=== PATIENT | male | born 2000 | race Two or more races ===

== ENCOUNTER 2020-01-20 13:16 | Emergency (ER) | payer OTHER ==
[~2020-01-20] VITALS: Ht 185.4 cm; Wt 57.6 kg
[2020-01-20] MEDS ORDERED: ABILIFY2 MG (13:43)
[2020-01-20] MEDS ORDERED: LEXAPRO5 MG (13:43)
[2020-01-20] MEDS ORDERED: CLONAZEPAM0.5 MG (13:44)
== END 2020-01-20 15:25 | disposition home or self-care (01) ==
LOC: ER 13:16
DX: R42 Dizziness and giddiness (principal); F06.4 Anxiety disorder due to known physiological condition; T43.595A Adverse effect of other antipsychotics and neuroleptics, initial encounter; Y92.89 Other specified places as the place of occurrence of the external cause

== ENCOUNTER 2022-08-12 10:10 | Emergency (ER) | payer OTHER ==
[~2022-08-12] VITALS: Ht 185.4 cm; Wt 59.0 kg
[~2022-08-12 10:10] MED LIST: ABILIFY2 MG; CLONAZEPAM0.5 MG; LEXAPRO5 MG
[2022-08-12] MEDS ORDERED: AMOX1TAB5 PO (13:54)
== END 2022-08-12 14:18 | disposition home or self-care (01) ==
LOC: ER 10:10
DX: B34.9 Viral infection, unspecified (principal); Z20.822 Contact with and (suspected) exposure to COVID-19

== ENCOUNTER 2023-03-27 09:12 | Emergency (ER) | payer OTHER ==
[~2023-03-27] VITALS: Ht 185.4 cm; Wt 56.7 kg
[~2023-03-27 09:12] MED LIST changes: +AMOX1TAB5 PO
== END 2023-03-27 16:28 | disposition home or self-care (01) ==
LOC: ER 09:12
PROVIDERS: General Practice
DX: K52.9 Noninfective gastroenteritis and colitis, unspecified (principal)

== ENCOUNTER 2024-09-16 10:07 | Emergency (ER) | payer OTHER ==
[~2024-09-16] VITALS: Ht 185.4 cm; Wt 56.7 kg
[2024-09-16] MEDS ORDERED: ONDANSETRON HCL 2 MG/ML VIAL IV ONE (12:00)
[2024-09-16] MEDS ORDERED: 0.9 % SODIUM CHLORIDE 1,000 ML IV SCH (12:00)
[2024-09-16] MEDS ORDERED: ONDANSETRON HCL 2 MG/ML VIAL ONE (12:44)
[2024-09-16 13:10] LABS: HEMATOCRIT 54.8 % (39.0-48.0); HEMOGLOBIN 18.3 g/dL (13-16.00); MEAN CELL VOLUME 95.9 fL (80.0-100.00); MEAN CORPUSCULAR HEMOGLOBIN 32.1 pg (27.00-32.0); MEAN CORPUSCULAR HGB CONC 33.4 g/dl (32.0-36.0); PLATELET COUNT 234 K/uL (150-450); RED BLOOD COUNT 5.71 M/uL (4.00-6.00); RED CELL DISTRIBUTION WIDTH 13.9 % (11.5-14.5)
[2024-09-16 13:42] LABS: ALBUMIN 4.7 gm/dL (3.4-5.0); BILIRUBIN TOTAL 0.87 mg/dL (0.3-1.2); CALCIUM 9.9 mg/dL (8.5-10.1); CREATININE SERUM 0.89 mg/dL (0.70-1.30); GFR 105.02; GLOBULINA 4.1 G/DL (2.4-3.5); POTASSIUM 5.44 mEq/L (3.5-5.1); TOTAL PROTEIN 8.8 gm/dL (6.4-8.2)
[2024-09-16 17:19] LABS: HEMATOCRIT 47.7 % (39.0-48.0); MEAN CELL VOLUME 95.6 fL (80.0-100.00); MEAN CORPUSCULAR HEMOGLOBIN 31.6 pg (27.00-32.0); PLATELET COUNT 200 K/uL (150-450); RED BLOOD COUNT 4.99 M/uL (4.00-6.00); RED CELL DISTRIBUTION WIDTH 13.9 % (11.5-14.5)
[2024-09-16 17:23] LABS: HEMOGLOBIN 15.8 g/dL (13-16.00)
== END 2024-09-16 19:15 | disposition home or self-care (01) ==
LOC: ER 10:09
PROVIDERS: Emergency Medicine
DX: K29.70 Gastritis, unspecified, without bleeding (principal)